=== PATIENT | male | born 1995 | race Caucasian/White ===

== ENCOUNTER 2021-01-08 17:35 | Emergency (ER) | payer OTHER, SELFPAY ==
[2021-01-08 19:02] LABS: HIV (1/2) Antibody/Antigen Non-Reactive (NonReactive); HIV 1/2 INDEX 0.12 S/CO (<1.00); Hep C IgG Ab Non-Reactive (NonReactive); Hep C Index 0.05 S/CO (0-0.79)
[2021-01-08 19:04] LABS: HBSAB Concentration 41.12 mIU/mL; Hep B Surf AB Reactive (NonReactive)
== END 2021-01-08 18:04 | disposition home or self-care (01) ==
LOC: ERS 17:35
DX: S61.032A Puncture wound without foreign body of left thumb without damage to nail, initial encounter (principal); W46.1XXA Contact with contaminated hypodermic needle, initial encounter
CPT/HCPCS: 36415; 86706; 86803; 87389; 99282